=== PATIENT | male | born 1980 | race Two or more races ===

== ENCOUNTER 2021-07-15 11:09 | Outpatient (CLI) | payer OTHER | END 2021-07-15 11:10 | disposition EMS.NT | LOC: EMS 11:09 | DX: T24.201A Burn of second degree of unspecified site of right lower limb, except ankle and foot, initial encounter (principal); X08.8XXA Exposure to other specified smoke, fire and flames, initial encounter; Y92.009 Unspecified place in unspecified non-institutional (private) residence as the place of occurrence of the external cause ==

== ENCOUNTER 2021-07-15 12:03 | Emergency (ER) | payer OTHER ==
[2021-07-15 12:09] VITALS: BP 160/90
[2021-07-15] MEDS ORDERED: HYDROmorphone 1 MG/ML CARPUJECT IM STA (12:33)
[2021-07-15] MEDS ORDERED: BACITRACIN ZINC OINT 1 PACKET TOP STA (12:34)
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
== END 2021-07-15 13:35 | disposition home or self-care (01) ==
LOC: ED 12:03
DX: T24.331A Burn of third degree of right lower leg, initial encounter (principal); T31.0 Burns involving less than 10% of body surface; X01.0XXA Exposure to flames in uncontrolled fire, not in building or structure, initial encounter
CPT/HCPCS: 16020; 96372; 99282; 99283; A9270; J1170